=== PATIENT | female | born 1970 | race Caucasian/White ===

== ENCOUNTER 2022-11-24 09:30 | Emergency (ER) | payer OTHER ==
[~2022-11-24] VITALS: Ht 172.7 cm; Wt 65.8 kg
--- NOTE | 2022-11-24 09:34 | NUR ---
Pt. in room with family at bedside
--- NOTE | 2022-11-24 09:47 | NUR ---
MD Clarke seen and examining patient
[2022-11-24] MEDS ORDERED: TDAP DIPH,PERTUSS,TET VAC/PF 0.5 ML DISP.SYRIN IM ONE ×2 (10:00→10:17)
[2022-11-24] MEDS ORDERED: NEOMY/BACITRA/POLYMYXIN B OINT UD PACKET TP ONE ×2 (10:00→10:01)
[2022-11-24] MEDS ORDERED: IBUP-1955 PO (10:35)
[2022-11-24] MEDS ORDERED: AMOX-430 PO (10:35)
--- NOTE | 2022-11-24 10:37 | NUR ---
Patient discharged to home in stable condition. Written and verbal after care instructions given. Patient verbalizes understanding of instructions. Stressed follow up or return to ER for worsening s/s.
[2022-11-24 10:40] VITALS: BP 120/80
== END 2022-11-24 10:52 | disposition home or self-care (01) ==
LOC: ER 09:30
DX: S41.152A Open bite of left upper arm, initial encounter (principal); W54.0XXA Bitten by dog, initial encounter; Y93.89 Activity, other specified; Y92.89 Other specified places as the place of occurrence of the external cause; Y99.8 Other external cause status
CPT/HCPCS: 90715; A4663